=== PATIENT | female | born 1985 | race Caucasian/White ===

== ENCOUNTER → 2017-01-14 | Outpatient (CLI) | payer MEDICARE, MEDICAID ==
[~2017-01-14] MED LIST: ACETAMINOPHEN W1 TA6 PO; AMOXICILLIN 50500 MG PO; AMOXICILLIN PO; AMOXICILLIN875 MG PO; AZITHROMYCIN; CELEXA 20MG20 MG/TAB PO; CEPHALEXIN500 M1 PO; DOXYCYCLINE 10100 MG PO; LORTAB 5/500 501 TAB PO; MACROBID 1100 MG/CAP PO; MEDROL 4MG DOSPA4 MG PO; MOTRIN 800800 MG/TAB PO; NEXIUM 40MG40 MG PO; NO HOME MEDICATIONS; NORCO 325 MG-51 TAB PO; PENICILLIN V500 MG PO; PERCOCET 325 MG1 TA2 PO; PERCOCET 5/321 UDTAB PO; PHENERGAN 25 TA25 MG PO; PHENERGAN W/CO120 M1 PO; PHENERGAN W/CO120 ML PO; PRENATAL VITAMI1 TA5 PO; PROAIR HFA0.09 MG/AC IH; ULTRAM 50MG TAB50 MG PO; VIIBRYD40 MG PO; ZITHROMAX 250M250 MG PO; ZITHROMAX Z PA250 MG PO; ZOFRAN 4MG T4 MG/TAB PO; ZOLOFT50 MG PO
== END ==
LOC: BHSO 09:13
DX: F31.81 Bipolar II disorder (principal)

== ENCOUNTER 2017-03-08 21:28 | Emergency (ER) | payer MEDICARE, MEDICAID ==
[~2017-03-08] VITALS: Ht 160 cm; Wt 81.8 kg
[2017-03-08 21:33] VITALS: TEMP 98.9
[2017-03-08 22:36] LABS: BASO % 0.2 % (0.0-2.0); EOS % 0.3 % (0-4.0); GRAN # 7.4 (1.4-6.5); LYMPH # 1.5 (1.2-3.4); LYMPH % 15.3 % (20.0-51.0); MEAN CELL VOLUME 81 fl (80.0-100.0); MEAN CORPUSCULAR HGB CONC 31 g/dl (33.0-37.0); MEAN PLATELET VOLUME 9.5 fl (7.4-10.4); MONO # 0.7 (0.1-0.6); MONO % 6.7 % (1.7-9.3); PLATELET COUNT 472 K/mm3 (130-400); RED BLOOD COUNT 4.48 M/mm3 (4.10-5.30); REDCELL DISTRIBUTION WIDTH-CV 15.7 % (11.5-14.5); WHITE BLOOD COUNT 9.6 K/mm3 (4.8-10.8)
[2017-03-08 22:37] LABS: ALANINE AMINOTRANSFERASE 21 U/L (9-52); ALBUMIN 4.8 gm/dL (3.5-5.0); ALKALINE PHOSPHATASE 100 U/L (50-136); ANION GAP 13 mmol/L (7-16); BILIRUBIN,TOTAL 0.9 mg/dL (0.0-1.0); BLOOD UREA NITROGEN 20 mg/dL (7-17); CALCIUM 9.6 mg/dL (8.4-10.2); CARBON DIOXIDE 24 mmol/L (22-30); CHLORIDE 104 mmol/L (98-107); CREATININE, serum 0.74 mg/dL (0.52-1.25); GLUCOSE 98 mg/dL (74-106); POTASSIUM 3.6 mmol/L (3.4-5.0); SODIUM 141 mmol/L (137-145)
[2017-03-08 22:38] LABS: HEMATOCRIT 36.1 % (37.0-47.0); HEMOGLOBIN 11.3 g/dl (12.5-16.0); MEAN CORPUSCULAR HEMOGLOBIN 25 pg (27.0-31.0)
[2017-03-08 22:39] LABS: ACETAMINOPHEN < 10 ug/mL (10-30); AMPHETAMINE URINE POSITIVE; BARBITURATES URINE NEGATIVE; BENZODIAZEPINES URINE NEGATIVE; BUPRENORPHINE URINE NEGATIVE; METHADONE URINE NEGATIVE; OPIATES URINE NEGATIVE; OXYCODONE URINE NEGATIVE; PHENCYCLIDINE URINE NEGATIVE; PROPOXYPHENE URINE NEGATIVE; SALICYLATE < 1.0 mg/dL; THC CANNABINOIDS URINE NEGATIVE
[2017-03-08 22:47] LABS: HYALINE CAST >12 /lpf; PH 5 (5-8); URINE APPEARANCE Cloudy; URINE BACTERIA None Seen /hpf; URINE BILIRUBIN Negative (NEGATIVE); URINE BLOOD Negative (NEGATIVE); URINE COLOR Amber; URINE GLUCOSE Negative (NEGATIVE); URINE KETONE Negative (NEGATIVE); URINE UROBILINOGEN Negative (NEGATIVE)
[2017-03-09 02:45] VITALS: BP 156/78
[2017-03-09 03:40] VITALS: PULSE 84
== END 2017-03-09 03:53 ==
LOC: COL.ER 21:28
PROVIDERS: Emergency Medicine
DX: F29 Unspecified psychosis not due to a substance or known physiological condition (principal); R45.851 Suicidal ideations; F15.99 Other stimulant use, unspecified with unspecified stimulant-induced disorder; F32.9 Major depressive disorder, single episode, unspecified; I50.9 Heart failure, unspecified; F41.9 Anxiety disorder, unspecified; Z87.891 Personal history of nicotine dependence; Z86.79 Personal history of other diseases of the circulatory system; Z98.51 Tubal ligation status; Z90.49 Acquired absence of other specified parts of digestive tract; Z98.890 Other specified postprocedural states

== ENCOUNTER → 2017-07-29 | Outpatient (CLI) | payer MEDICARE, MEDICAID | LOC: BHSO 08:38 | DX: F41.0 Panic disorder [episodic paroxysmal anxiety] (principal) ==

== ENCOUNTER 2019-09-24 09:34 | Emergency (ER) | payer MEDICARE, MEDICAID ==
[~2019-09-24] VITALS: Ht 160 cm; Wt 75.0 kg
[2019-09-24 09:44] VITALS: TEMP 97.5
[2019-09-24 11:40] VITALS: BP 104/76; PULSE 81
== END 2019-09-24 11:40 | disposition home or self-care (01) ==
LOC: COL.ER 09:34
DX: S62.635A Displaced fracture of distal phalanx of left ring finger, initial encounter for closed fracture (principal); S69.91XA Unspecified injury of right wrist, hand and finger(s), initial encounter; F32.9 Major depressive disorder, single episode, unspecified; F41.9 Anxiety disorder, unspecified; Z98.51 Tubal ligation status; F17.210 Nicotine dependence, cigarettes, uncomplicated; Z98.890 Other specified postprocedural states; W00.0XXA Fall on same level due to ice and snow, initial encounter
CPT/HCPCS: Q4021

== ENCOUNTER 2021-12-04 20:50 | Emergency (ER) | payer MEDICARE ==
[~2021-12-04] VITALS: Ht 160 cm; Wt 106.8 kg
[2021-12-04 20:58] VITALS: TEMP 98.6
[2021-12-04] MEDS ORDERED: AMOXICILLIN 8751 TAB PO (21:19)
[2021-12-04] MEDS ORDERED: PERCOCET 325 MG1 TA2 PO (21:19)
[2021-12-04 21:30] VITALS: BP 182/101; PULSE 84
== END 2021-12-04 21:30 | disposition home or self-care (01) ==
LOC: COL.ER 20:50
DX: S02.5XXA Fracture of tooth (traumatic), initial encounter for closed fracture (principal); X58.XXXA Exposure to other specified factors, initial encounter

== ENCOUNTER 2022-02-01 14:29 | Emergency (ER) | payer MEDICARE ==
[~2022-02-01] VITALS: Ht 160 cm; Wt 104.5 kg
[~2022-02-01 14:29] MED LIST changes: +AMOXICILLIN 8751 TAB PO
[2022-02-01 14:42] VITALS: TEMP 98
[2022-02-01] MEDS ORDERED: CATAPRES 0.1MG0.1 MG PO (14:48)
[2022-02-01] MEDS ORDERED: PROZAC 20MG20 MG PO (14:48)
[2022-02-01] MEDS ORDERED: DESYREL 100MG100 MG PO (14:48)
[2022-02-01] MEDS ORDERED: ZOLOFT 50MG50 MG PO (14:49)
[2022-02-01] MEDS ORDERED: NORCO 325 MG-51 TAB PO (15:42)
[2022-02-01] MEDS ORDERED: CLEOCIN HCL300 MG PO (15:42)
[2022-02-01 16:10] VITALS: BP 133/89; PULSE 87
== END 2022-02-01 16:10 | disposition home or self-care (01) ==
LOC: COL.ER 14:29
DX: K04.7 Periapical abscess without sinus (principal); K02.9 Dental caries, unspecified; Z28.310 Unvaccinated for COVID-19

== ENCOUNTER 2022-12-13 18:24 | Emergency (ER) | payer MEDICARE ==
[~2022-12-13] VITALS: Ht 160 cm; Wt 104.5 kg
[~2022-12-13 18:24] MED LIST changes: +CATAPRES 0.1MG0.1 MG PO; +CLEOCIN HCL300 MG PO; +DESYREL 100MG100 MG PO; +PROZAC 20MG20 MG PO; +ZOLOFT 50MG50 MG PO
[2022-12-13 18:28] VITALS: TEMP 98.2
[2022-12-13 20:45] VITALS: BP 132/81; PULSE 80
== END 2022-12-13 20:50 | disposition home or self-care (01) ==
LOC: COL.ER 18:24
DX: S09.90XA Unspecified injury of head, initial encounter (principal); R68.84 Jaw pain; Z28.310 Unvaccinated for COVID-19; Y08.89XA Assault by other specified means, initial encounter